=== PATIENT | male | born 1965 ===

== ENCOUNTER → 2023-08-14 | Outpatient (CLI) | payer OTHER | LOC: LAB 10:40 → LAB SHORT 10:40 | DX: Z08 Encounter for follow-up examination after completed treatment for malignant neoplasm (principal); L57.0 Actinic keratosis; L57.8 Other skin changes due to chronic exposure to nonionizing radiation; R36.9 Urethral discharge, unspecified; Z85.828 Personal history of other malignant neoplasm of skin | CPT/HCPCS: 87070; 87077; 87147; 87186; 87205 ==